=== PATIENT | female | born 2000 | race Caucasian/White ===

== ENCOUNTER 2024-06-10 15:22 | Emergency (ER) | payer OTHER ==
[~2024-06-10] VITALS: Ht 167.6 cm; Wt 61.0 kg
[2024-06-10 15:29] VITALS: TEMP 98.7; O2SAT 97
[2024-06-10] MEDS: TETANUS, DIPHTHERIA, PERTUSSIS VAC/PF 0.5ML (>10YR OLD) IM ONE (18:27)
[2024-06-10] MEDS ORDERED: BO1 TP (18:58)
[2024-06-10] MEDS ORDERED: CEPH500T MT (18:58)
[2024-06-10] MEDS ORDERED: IBUP-2028 MT (18:58)
[2024-06-10] MEDS ORDERED: CEPH500C2 MT (19:13)
[2024-06-10 19:35] VITALS: BP 110/74; PULSE 68; RESP 16
[2024-06-10] MEDS: KETOROLAC 30MG/ML VIAL IM ONE (19:35)
== END 2024-06-10 19:45 | disposition home or self-care (01) ==
LOC: ER 15:22
DX: S61.315A Laceration without foreign body of left ring finger with damage to nail, initial encounter (principal); Z79.899 Other long term (current) drug therapy; X58.XXXA Exposure to other specified factors, initial encounter; Y93.89 Activity, other specified; Y92.89 Other specified places as the place of occurrence of the external cause; Y99.8 Other external cause status
CPT/HCPCS: 81025; 73130; 90715; 11760; 90471; 96372; 99284; J1885; Z7610 ×3; 12001